=== PATIENT | male | born 1955 | race Caucasian/White ===

== ENCOUNTER 2018-04-14 08:23 | Day surgery (SDC) | payer OTHER ==
[~2018-04-14] VITALS: Ht 177.8 cm; Wt 83.9 kg
[~2018-04-14 08:23] MED LIST: ALEV220T26 PO; ASPI1TAB PO; CHLO125TA PO; FLUTISP NARES; LEVO150T7 PO; TELM1TAB37 PO; VITA100067 PO
[2018-04-14] MEDS ORDERED: NS 1,000 ML IV ONE (08:30)
[2018-04-14] MEDS ORDERED: PROPOFOL 200 MG/20 ML VIAL As Ordered ONE ×2 (10:09→10:23)
[2018-04-14] MEDS ORDERED: LIDOCAINE 2% INJ 100 MG/5 ML SDV (FOR ANES.) As Ordered ONE (10:09)
--- NOTE | 2018-04-14 10:35 | ROOR ---
Patient Name: Antwan Cano Procedure Date: 04/14/2018 10:04 AM Date of : 1955 Age: 63 Room: [facility] Gender: Male Note Status: Finalized Procedure: Colonoscopy Indications: High risk colon cancer surveillance: Personal history of colonic polyps, Last colonoscopy: January 2013 Providers: Vlad Ozuna MD Referring MD: Anthony Agarwal MD Requesting Provider: Medicines: Monitored Anesthesia Care Complications: No immediate complications. Procedure: Pre-Anesthesia Assessment: - Prior to the procedure, a History and Physical was performed, and patient medications and allergies were reviewed. The patient is competent. The risks and benefits of the procedure and the sedation options and risks were discussed with the patient. All questions were answered and informed consent was obtained. Patient identification and proposed procedure were verified by the physician, the nurse and the wood model builder in the procedure room. Mental Status Examination: alert and oriented. CV Examination: regular rate and rhythm. Prophylactic Antibiotics: The patient does not require prophylactic antibiotics. Prior Anticoagulants: The patient has taken no previous anticoagulant or antiplatelet agents. ASA Grade Assessment: II - A patient with mild systemic disease. After reviewing the risks and benefits, the patient was deemed in satisfactory condition to undergo the procedure. The anesthesia plan was to use monitored anesthesia care (MAC). Immediately prior to administration of medications, the patient was re-assessed for adequacy to receive sedatives. The heart rate, respiratory rate, oxygen saturations, blood pressure, adequacy of pulmonary ventilation, and response to care were monitored throughout the procedure. The physical status of the patient was re-assessed after the procedure. The Colonoscope was introduced through the anus and advanced to the cecum, identified by appendiceal orifice and ileocecal valve. The colonoscopy was performed without difficulty. The patient tolerated the procedure well. The quality of the bowel preparation was excellent. Findings: Hemorrhoids were found on perianal exam. Multiple medium-mouthed diverticula were found in the sigmoid colon. A 3 mm polyp was found at 70 cm proximal to the anus. The polyp was sessile. The polyp was removed with a jumbo cold forceps. Resection and retrieval were complete. Estimated blood loss was minimal. Impression: - Hemorrhoids found on perianal exam. - Diverticulosis in the sigmoid colon. - One 3 mm polyp at 70 cm proximal to the anus, removed with a jumbo cold forceps. Resected and retrieved. Recommendation: - Discharge patient to home. - Resume previous diet. - Continue present medications. - Await pathology results. - Telephone endoscopist for pathology results in 1 week. Vlad Ozuna MD 04/14/2018 10:34:48 AM Number of Addenda: 0 Note Initiated On: 04/14/2018 10:04 AM Estimated Blood Loss: Estimated blood loss was minimal.
[2018-04-14 11:00] VITALS: BP 131/69
== END 2018-04-14 11:22 | disposition home or self-care (01) ==
LOC: M OPP 08:23
PROVIDERS: ATTEND Surgery
DX: Z12.11 Encounter for screening for malignant neoplasm of colon (principal); K64.9 Unspecified hemorrhoids; D12.6 Benign neoplasm of colon, unspecified; K57.30 Diverticulosis of large intestine without perforation or abscess without bleeding; I10 Essential (primary) hypertension; M17.0 Bilateral primary osteoarthritis of knee; E03.9 Hypothyroidism, unspecified; Z86.010 Personal history of colon polyps; Z80.0 Family history of malignant neoplasm of digestive organs; Z79.82 Long term (current) use of aspirin; Z79.899 Other long term (current) drug therapy; Z88.8 Allergy status to other drugs, medicaments and biological substances

== ENCOUNTER → 2019-09-17 | Outpatient (CLI) | payer OTHER ==
[~2019-09-17] MED LIST changes: -ASPI1TAB PO; +ASPI81TA26 PO
--- NOTE | 2019-09-17 11:24 | REPPI ---
REASON: Hand lesion. There are mild degenerative change. There is no acute fracture, dislocation, or subluxation. The joint spaces are symmetric and relatively well maintained with degenerative changes seen, heaviest involving the 3rd metacarpophalangeal joint. The lateral view shows soft tissue swelling about the dorsum of the hand with slight central lucency seen. The etiology of this is uncertain. IMPRESSION: 1. Degenerative changes. 2. Soft tissue swelling. MRI is recommended. Electronically Signed by Maykel Melvin DO 09/17/2019 11:25 A
== END ==
LOC: M PLAIMG 10:40
PROVIDERS: ATTEND Family Medicine
DX: L98.9 Disorder of the skin and subcutaneous tissue, unspecified (principal); M79.89 Other specified soft tissue disorders

== ENCOUNTER → 2019-10-15 | Outpatient (CLI) | payer OTHER ==
[~2019-10-15] MED LIST changes: +PROHANCE 279.3MG/ML 15ML VIAL As Ordered ONE; +PROHANCE 279.3MG/ML 5ML VIAL As Ordered ONE
--- NOTE | 2019-10-15 11:57 | REP ---
MRI RIGHT HAND: Without and with IV gadolinium. HISTORY: Mass of the right hand. Comparison right hand radiographs are from September 17, 2019. TECHNIQUE: Axial, coronal and sagittal imaging planes utilized. T1- and T2-weighted scans were obtained with and without fat saturation. MR markers are affixed to the skin dorsally at the margins of the palpable lesion. MRI FINDINGS: Cortical and medullary bone signal intensity is normal. There is no evidence of cyst or bony destructive lesion. No joint effusion or arthropathy is evident. There is no evidence of tendon sheath effusion. There is a homogeneously fat signal intensity mass at the dorsal extensor tendon sheath overlying the 3rd metacarpal consistent with a soft tissue lipoma. This is deep to the extensor tendon. The extensor tendons for the 2nd and 4th digits are displaced by the lipomatous mass. The extensor tendon for the 3rd digit is displaced dorsally. Interosseous musculature is normal in coarse, caliber and signal intensity. No other soft tissue mass is seen. The lipoma measures 2.8 x 1.1 cm in radial to ulnar by anterior posterior dimension respectively. Its longitudinal span is 5.4 cm. Postcontrast imaging shows no contrast enhancement within the lesion. It is homogeneously fat and signal intensity. No other abnormal contrast enhancement is appreciated. 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 The lesion overlies the dorsal aspect of the metacarpals and metacarpocarpal articulations. Electronically Signed by Randall Spence MD 10/15/2019 12:50 P
== END ==
LOC: M RAD 08:18
PROVIDERS: ATTEND Family Medicine
DX: R22.31 Localized swelling, mass and lump, right upper limb (principal)
CPT/HCPCS: 73220; A9576

== ENCOUNTER → 2021-03-12 | Outpatient (CLI) | payer OTHER ==
[~2021-03-12] MED LIST changes: -PROHANCE 279.3MG/ML 15ML VIAL As Ordered ONE; -PROHANCE 279.3MG/ML 5ML VIAL As Ordered ONE
--- NOTE | 2021-03-12 18:31 | REPVR ---
PROCEDURE INFORMATION: Exam: CT Maxillofacial Without Contrast, Sinus Exam date and time: 03/12/2021 5:37 PM Age: 65 years old Clinical indication: Sinusitis; Chronic; Additional info: Chronic maxullar sinusitis TECHNIQUE: Imaging protocol: CT Maxillofacial without contrast. Focus on the sinuses. Radiation optimization: All CT scans at this facility use at least one of these dose optimization techniques: automated exposure control; mA and/or kV adjustment per patient size (includes targeted exams where dose is matched to clinical indication); or iterative reconstruction. COMPARISON: No relevant prior studies available. FINDINGS: Frontal sinuses: Erosion of the posterior wall of right frontal sinus.. Erosion/thinning of the medial wall of right orbit. Ethmoid air cells: Complete opacification of the right maxillary sinus, right ethmoid sinuses, bilateral sphenoid and bilateral frontal sinuses. There is erosion of the right cribriform plate. There are hyperdense debris is in the right ethmoid sinuses Sphenoid sinuses: Normal. No air-fluid levels. Maxillary sinuses: Normal. No air-fluid levels. Ostiomeatal units are patent. Nasal cavity/Septum: Unremarkable. Orbital cavity: Orbits are normal. Globes are unremarkable. Bones/joints: See "Ethmoid air cells" finding. Soft tissues: Unremarkable. IMPRESSION: Complete opacification of the right maxillary sinus, right ethmoid, bilateral sphenoid and frontal sinuses. Erosion of posterior wall of right frontal sinus, thinning/erosion of the medial wall of right orbit and right cribriform plate. Possible polyposis of the right nasal cavity. Electronically signed by: Josiah Blackwell On 03/12/2021 18:30:36 PM
== END ==
LOC: M RAD 17:19
PROVIDERS: ATTEND Otolaryngology
DX: J30.2 Other seasonal allergic rhinitis (principal)

== ENCOUNTER → 2021-03-20 | Outpatient (CLI) | payer OTHER ==
--- NOTE | 2021-03-20 16:09 | REP ---
INDICATION: BILATERAL PRIMARY OSTEOARTHRITIS OF KNEE COMPARISON: None. TECHNIQUE: AP, lateral, bilateral oblique and sunrise views. FINDINGS: Advanced tricompartmental osteoarthritic degenerative changes are appreciated with subchondral sclerosis, joint space narrowing, chondrocalcinosis, osteophytosis and bulky areas of calcification in the posterior joint space. No obvious effusion. No acute fracture or dislocation. IMPRESSION: Advanced tricompartmental osteoarthritic degenerative changes. <Electronically signed by Yefri Becerra > 03/20/21 [id number]
== END ==
LOC: M PLAIMG 14:42
PROVIDERS: ATTEND Family Medicine
DX: M17.0 Bilateral primary osteoarthritis of knee (principal)

== ENCOUNTER → 2021-12-21 | Outpatient (CLI) | payer OTHER | LOC: M SOG 08:02 | PROVIDERS: ATTEND Orthopaedic Surgery Adult Reconstructive Orthopaedic Surgery | DX: M17.0 Bilateral primary osteoarthritis of knee (principal) ==

== ENCOUNTER 2022-05-14 12:52 | Outpatient (RCR) | payer MEDICARE, OTHER | END 2022-05-28 | LOC: M PT 12:52 | PROVIDERS: ATTEND Orthopaedic Surgery Adult Reconstructive Orthopaedic Surgery | DX: M17.0 Bilateral primary osteoarthritis of knee (principal) ==

== ENCOUNTER → 2022-06-03 | Outpatient (CLI) | payer MEDICARE, OTHER ==
[~2022-06-03] MED LIST changes: +CHLO25TA PO; +D200CAP2 PO; +NAPR1CAP PO
== END ==
LOC: M RAD 11:13
PROVIDERS: ATTEND Orthopaedic Surgery Adult Reconstructive Orthopaedic Surgery
DX: M17.0 Bilateral primary osteoarthritis of knee (principal)

== ENCOUNTER → 2022-06-10 | Outpatient (CLI) | payer MEDICARE, OTHER ==
[2022-06-10 18:05] LABS: INR 1.03; PROTHROMBIN TIME 13.7 SECONDS (12.5-14.5)
[2022-06-10 18:06] LABS: PARTIAL THROMBOPLASTIN TIME 26.6 SECONDS (24.8-34.2)
[2022-06-10 18:09] LABS: BASO # 0.1 10^3/uL (0.0-0.2); BASO % 0.6 % (0.0-1.0); EOS # 0.9 10^3/uL (0.0-0.5); EOS % 10.8 % (0.0-3.0); HEMATOCRIT 41.6 % (42.0-52.0); HEMOGLOBIN 13.5 g/dl (13.5-17.5); LYMPH % 25.6 % (24.0-44.0); MEAN CORPUSCULAR HEMOGLOBIN 28.4 pg (27.0-33.0); MEAN CORPUSCULAR HGB CONC 32.5 g/dl (32.0-36.5); MEAN CORPUSCULAR VOLUME 87.6 fl (80.0-96.0); MONO # 0.8 10^3/uL (0.0-0.8); MONO % 9.7 % (2.0-8.0); NEUTROPHILS # 4.2 10^3/uL (1.5-8.5); NEUTROPHILS % 52.8 % (36.0-66.0); PLATELET COUNT, AUTOMATED 224 10^3/uL (150-450); RED BLOOD COUNT 4.75 10^6/uL (4.30-6.10); WHITE BLOOD COUNT 7.9 10^3/uL (4.0-10.0)
[2022-06-10 18:17] LABS: CREATININE, URINE 83.1 MG/DL; MALB URINE SIEMENS < 3.0 MG/DL; MAU/CREAT RATIO 3.6 MCG/MG (0.0-30.0)
[2022-06-10 18:19] LABS: ALKALINE PHOSPHATASE 87 U/L (46-116); ALT/SGPT 20 U/L (7.0-40); AST/SGOT 26 U/L (<34); BILIRUBIN,TOTAL 0.5 MG/DL (0.3-1.2); BLOOD UREA NITROGEN 15 MG/DL (9-23); CALCIUM LEVEL 9.1 MG/DL (8.3-10.6); CARBON DIOXIDE LEVEL 30 MMOL/L (20-31); CHLORIDE LEVEL 102 MMOL/L (98-107); CREATININE FOR GFR 0.98 MG/DL (0.70-1.30); GLOMERULAR FILTRATION RATE > 60.0 (>49); GLUCOSE, FASTING 74 MG/DL (74-106); POTASSIUM SERUM 3.8 MMOL/L (3.5-5.1); SODIUM LEVEL 138 MMOL/L (136-145); TOTAL PROTEIN 6.7 G/DL (5.7-8.2)
[2022-06-10 18:23] LABS: HEMOGLOBIN A1c 5.6 % (4.0-6.0)
== END ==
LOC: M PLALAB 15:36
PROVIDERS: ATTEND Family Medicine
DX: I10 Essential (primary) hypertension (principal); E03.9 Hypothyroidism, unspecified

== ENCOUNTER → 2022-06-13 | Outpatient (CLI) | payer MEDICARE, OTHER | LOC: M LABSMTC 09:21 | PROVIDERS: ATTEND Anesthesiology | DX: Z01.812 Encounter for preprocedural laboratory examination (principal); Z11.52 Encounter for screening for COVID-19 ==

== ENCOUNTER 2022-06-18 09:02 | Inpatient (IN) | payer MEDICARE, OTHER ==
[~2022-06-18] VITALS: Ht 177.8 cm; Wt 81.2 kg
[~2022-06-18 09:02] MED LIST changes: +ACETAMINOPHEN 500 MG TAB PO ONE; +LR 1,000 ML IV SCH; +NAPROXEN 250 MG TAB PO ONE; +NS 1,000 ML IV ONE; +ONDANSETRON 4MG 2ML VIAL IV PRN; +PREGABALIN 25 MG CAP (LYRICA) PO ONE; +ROPIVA 125MG/EPINEPH 0.25MG/CLONID 40MCG/KETOR 15MG IN NS 50ML SYRINGE PA ONE; +ceFAZolin SOD 2 GM in IV 1 EA IV ONE; +fentaNYL 100 MCG/2 ML INJECTION IV PRN; +oxyCODONE 5MG TAB PO PRN
[2022-06-18] MEDS ORDERED: propofoL 500 MG/50 ML VIAL As Ordered ONE (09:21)
[2022-06-18] MEDS ORDERED: MIDAZOLAM 5MG/ML 1ML VIAL As Ordered ONE (09:22)
[2022-06-18] MEDS ORDERED: propofoL 200 MG/20 ML VIAL As Ordered ONE (09:23)
[2022-06-18] MEDS ORDERED: TRANEXAMIC ACID 100 MG/ML 10ML VIAL As Ordered ONE (11:19)
[2022-06-18] MEDS ORDERED: VANCOMYCIN 500MG/10ML VIAL As Ordered ONE (11:19)
[2022-06-18] MEDS ORDERED: fentaNYL 100 MCG/2 ML INJECTION As Ordered ONE (13:23)
[2022-06-18] MEDS ORDERED: LR 1,000 ML IV SCH ×2 (13:45→14:10)
[2022-06-18] MEDS ORDERED: oxyCODONE 5MG TAB PO PRN ×3 (13:45→14:10)
[2022-06-18] MEDS ORDERED: ONDANSETRON 4MG 2ML VIAL IV PRN ×2 (13:45→14:10)
[2022-06-18] MEDS ORDERED: fentaNYL 100 MCG/2 ML INJECTION IV PRN (13:45)
[2022-06-18 18:00] VITALS: BP 125/75
[2022-06-18 18:30] VITALS: BP 126/82
[2022-06-18] MEDS: ACETAMINOPHEN TAB 650MG DOSE (2X325MG) PO SCH (18:40)
[2022-06-18 18:48] LABS: HEMATOCRIT 40.9 % (42.0-52.0); HEMOGLOBIN 13.5 g/dl (13.5-17.5); MEAN CORPUSCULAR HEMOGLOBIN 28.7 pg (27.0-33.0); MEAN CORPUSCULAR VOLUME 86.8 fl (80.0-96.0); PLATELET COUNT, AUTOMATED 211 10^3/uL (150-450); RED BLOOD COUNT 4.71 10^6/uL (4.30-6.10)
[2022-06-18 19:12] LABS: BLOOD UREA NITROGEN 16 MG/DL (9-23); CALCIUM LEVEL 9.5 MG/DL (8.3-10.6); CARBON DIOXIDE LEVEL 28 MMOL/L (20-31); CHLORIDE LEVEL 103 MMOL/L (98-107); GLUCOSE, FASTING 124 MG/DL (74-106); POTASSIUM SERUM 4.2 MMOL/L (3.5-5.1); SODIUM LEVEL 138 MMOL/L (136-145)
[2022-06-18 19:30] VITALS: BP 122/73
[2022-06-18 20:02] LABS: CREATININE FOR GFR 0.97 MG/DL (0.70-1.30); GLOMERULAR FILTRATION RATE > 60.0 (>49)
[2022-06-18 20:32] VITALS: BP 124/78
[2022-06-18] MEDS ORDERED: HOME MED LIST COMPLETE! XX SCH (20:55)
[2022-06-18] MEDS: ASPIRIN 81MG ENTERIC TABLET PO SCH (20:58)
[2022-06-18] MEDS: NAPROXEN 250 MG TAB PO SCH (20:58)
[2022-06-18] MEDS: ceFAZolin SOD 2 GM in IV 1 EA IV SCH (20:58)
[2022-06-18 21:28] VITALS: BP 125/75
[2022-06-18 22:33] VITALS: BP 120/75
[2022-06-19] MEDS: ACETAMINOPHEN TAB 650MG DOSE (2X325MG) PO SCH ×3 (00:41→12:48)
[2022-06-19 02:00] VITALS: BP 115/75
[2022-06-19] MEDS: ceFAZolin SOD 2 GM in IV 1 EA IV SCH (04:43)
[2022-06-19 05:35] VITALS: BP 115/74
[2022-06-19 06:39] LABS: HEMATOCRIT 37.7 % (42.0-52.0); HEMOGLOBIN 12.9 g/dl (13.5-17.5); MEAN CORPUSCULAR HEMOGLOBIN 29.1 pg (27.0-33.0); MEAN CORPUSCULAR HGB CONC 34.2 g/dl (32.0-36.5); MEAN CORPUSCULAR VOLUME 85.1 fl (80.0-96.0); PLATELET COUNT, AUTOMATED 218 10^3/uL (150-450); RED BLOOD COUNT 4.43 10^6/uL (4.30-6.10); WHITE BLOOD COUNT 16.3 10^3/uL (4.0-10.0)
[2022-06-19 07:10] LABS: BLOOD UREA NITROGEN 20 MG/DL (9-23); CALCIUM LEVEL 9.3 MG/DL (8.3-10.6); CARBON DIOXIDE LEVEL 27 MMOL/L (20-31); CHLORIDE LEVEL 102 MMOL/L (98-107); CREATININE FOR GFR 0.89 MG/DL (0.70-1.30); GLOMERULAR FILTRATION RATE > 60.0 (>49); GLUCOSE, FASTING 122 MG/DL (74-106); MAGNESIUM LEVEL 1.7 MG/DL (1.8-2.4); PHOSPHORUS LEVEL 3.3 MG/DL (2.4-5.1); POTASSIUM SERUM 3.9 MMOL/L (3.5-5.1); SODIUM LEVEL 137 MMOL/L (136-145)
[2022-06-19] MEDS ORDERED: MAGNESIUM OXIDE 400MG TAB (MAG-OX) PO ONE (08:40)
[2022-06-19] MEDS: ASPIRIN 81MG ENTERIC TABLET PO SCH (09:23)
[2022-06-19] MEDS: NAPROXEN 250 MG TAB PO SCH (09:27)
[2022-06-19 10:00] VITALS: BP 140/73
[2022-06-19] MEDS ORDERED: OXYC1TAB23 PO ×2 (12:27→16:46)
[2022-06-19 14:10] VITALS: BP 135/71
== END 2022-06-19 15:45 | disposition home health service (06) | DRG 517 ==
LOC: M SDC 09:02 → M MS5PR 14:52
PROVIDERS: ADMIT Internal Medicine; ATTEND Internal Medicine
PROC: 8E0Y0CZ Robotic Assisted Procedure of Lower Extremity, Open Approach (ICD-10-PCS; 2022-06-18)
PROC: 0SR Lower Joints, Replacement (ICD-10-PCS; principal; 2022-06-18 11:48)
DX: M17.11 Unilateral primary osteoarthritis, right knee (principal); E03.9 Hypothyroidism, unspecified; I10 Essential (primary) hypertension; E83.42 Hypomagnesemia; Z88.8 Allergy status to other drugs, medicaments and biological substances; Z79.899 Other long term (current) drug therapy; Z79.82 Long term (current) use of aspirin

== ENCOUNTER → 2022-06-20 | Outpatient (REF) | payer MEDICARE, OTHER ==
[~2022-06-20] MED LIST changes: -ACETAMINOPHEN 500 MG TAB PO ONE; -LR 1,000 ML IV SCH; -NAPROXEN 250 MG TAB PO ONE; -NS 1,000 ML IV ONE; -ONDANSETRON 4MG 2ML VIAL IV PRN; +OXYC1TAB23 PO; -PREGABALIN 25 MG CAP (LYRICA) PO ONE; -ROPIVA 125MG/EPINEPH 0.25MG/CLONID 40MCG/KETOR 15MG IN NS 50ML SYRINGE PA ONE; -ceFAZolin SOD 2 GM in IV 1 EA IV ONE; -fentaNYL 100 MCG/2 ML INJECTION IV PRN; -oxyCODONE 5MG TAB PO PRN
[2022-06-20 13:21] LABS: HEMATOCRIT 39.9 % (42.0-52.0); HEMOGLOBIN 13.2 g/dl (13.5-17.5); MEAN CORPUSCULAR HEMOGLOBIN 28.7 pg (27.0-33.0); MEAN CORPUSCULAR HGB CONC 33.1 g/dl (32.0-36.5); MEAN CORPUSCULAR VOLUME 86.7 fl (80.0-96.0); PLATELET COUNT, AUTOMATED 242 10^3/uL (150-450); WHITE BLOOD COUNT 13.4 10^3/uL (4.0-10.0)
== END ==
LOC: M SHH 12:43
PROVIDERS: ATTEND Orthopaedic Surgery Adult Reconstructive Orthopaedic Surgery
DX: M17.11 Unilateral primary osteoarthritis, right knee (principal); D72.829 Elevated white blood cell count, unspecified; E87.8 Other disorders of electrolyte and fluid balance, not elsewhere classified; I10 Essential (primary) hypertension; E03.9 Hypothyroidism, unspecified

== ENCOUNTER → 2022-07-01 | Outpatient (CLI) | payer MEDICARE, OTHER | LOC: M SOG 14:39 | PROVIDERS: ATTEND Orthopaedic Surgery Adult Reconstructive Orthopaedic Surgery | DX: M17.11 Unilateral primary osteoarthritis, right knee (principal); Z96.651 Presence of right artificial knee joint ==

== ENCOUNTER → 2022-09-06 | Outpatient (REF) | payer MEDICARE, OTHER ==
[~2022-09-06] MED LIST changes: +FLUT50SP17 NARES; -FLUTISP NARES
== END ==
LOC: M SFHCPLAZ 12:17
PROVIDERS: ATTEND Family Medicine
DX: R73.01 Impaired fasting glucose (principal); E03.9 Hypothyroidism, unspecified; E78.5 Hyperlipidemia, unspecified; Z12.5 Encounter for screening for malignant neoplasm of prostate; E55.9 Vitamin D deficiency, unspecified

== ENCOUNTER → 2022-12-26 | Outpatient (CLI) | payer MEDICARE, OTHER | LOC: M SOG 10:49 | PROVIDERS: ATTEND Orthopaedic Surgery | DX: M25.561 Pain in right knee (principal) ==

== ENCOUNTER → 2023-02-27 | Outpatient (REF) | payer MEDICARE, OTHER | LOC: M SFHCPLAZ 11:45 | PROVIDERS: ATTEND Family Medicine | DX: R73.01 Impaired fasting glucose (principal); E03.9 Hypothyroidism, unspecified; I10 Essential (primary) hypertension ==

== ENCOUNTER 2023-08-07 08:40 | Day surgery (SDC) | payer MEDICARE, OTHER ==
[~2023-08-07] VITALS: Ht 177.8 cm; Wt 85.3 kg
[~2023-08-07 08:40] MED LIST changes: -FLUT50SP17 NARES; +FLUTISP NARES; +TEMO0.0517 TOP
[2023-08-07] MEDS: NS 1,000 ML IV ONE (09:10)
[2023-08-07] MEDS ORDERED: propofoL 200 MG/20 ML VIAL As Ordered ONE (09:18)
[2023-08-07] MEDS ORDERED: GLYCOPYRROLATE INJ 0.2 MG/ML 2 ML VIAL As Ordered ONE (09:18)
[2023-08-07 09:44] VITALS: TEMP 98.1
[2023-08-07 10:00] VITALS: BP 116/71; O2SAT 96
== END 2023-08-07 10:08 | disposition home or self-care (01) ==
LOC: M OPP 08:40
PROVIDERS: ATTEND Internal Medicine Gastroenterology
DX: Z86.010 Personal history of colon polyps (principal); Z80.0 Family history of malignant neoplasm of digestive organs; D12.2 Benign neoplasm of ascending colon; D12.3 Benign neoplasm of transverse colon; K63.89 Other specified diseases of intestine; K64.8 Other hemorrhoids; Z79.83 Long term (current) use of bisphosphonates; Z79.890 Hormone replacement therapy; Z88.8 Allergy status to other drugs, medicaments and biological substances

== ENCOUNTER → 2024-03-02 | Outpatient (CLI) | payer MEDICARE, OTHER | LOC: M RAD 08:19 | PROVIDERS: ATTEND Family Medicine | DX: K74.00 Hepatic fibrosis, unspecified (principal) ==

== ENCOUNTER → 2024-08-10 | Outpatient (CLI) | payer MEDICARE, OTHER | LOC: M PLAIMG 15:59 | PROVIDERS: ATTEND Nurse Practitioner Adult Health | DX: R91.8 Other nonspecific abnormal finding of lung field (principal); R05.1 Acute cough ==

== ENCOUNTER → 2024-08-10 | Outpatient (REF) | payer MEDICARE, OTHER | LOC: M SFHCPLAZ 17:00 | PROVIDERS: ATTEND Nurse Practitioner Adult Health | DX: R68.89 Other general symptoms and signs (principal) ==

== ENCOUNTER → 2024-08-24 | Outpatient (CLI) | payer MEDICARE, OTHER | LOC: M PLAIMG 10:24 | PROVIDERS: ATTEND Nurse Practitioner Adult Health | DX: R05.1 Acute cough (principal); J18.9 Pneumonia, unspecified organism; J98.11 Atelectasis ==